=== PATIENT | male | born 1985 | race Two or more races ===

== ENCOUNTER 2019-08-23 21:24 | Emergency (ER) | payer MEDICAID ==
[~2019-08-23] VITALS: Ht 175.3 cm; Wt 108.9 kg
[~2019-08-23 21:24] MED LIST: LORA0.5T12 PO
[2019-08-23 22:25] VITALS: BP 135/86
[2019-08-23] MEDS ORDERED: TETRACAINE 1% INJ 2 ML VIAL IJ ONE (22:45)
[2019-08-23] MEDS ORDERED: FLUORESCEIN SOD 1 MG TEST STRIP EACHEYE ONE (22:45)
== END 2019-08-23 23:40 | disposition left against medical advice (07) ==
LOC: ER 21:27
DX: T15.02XA Foreign body in cornea, left eye, initial encounter (principal); X58.XXXA Exposure to other specified factors, initial encounter; Y93.89 Activity, other specified; Y92.89 Other specified places as the place of occurrence of the external cause; Y99.8 Other external cause status
CPT/HCPCS: 65222

== ENCOUNTER 2020-05-27 08:50 | Emergency (ER) | payer MEDICAID ==
[~2020-05-27] VITALS: Ht 190.5 cm; Wt 158.8 kg
[~2020-05-27 08:50] MED LIST changes: -LORA0.5T12 PO; +LORA0.5T20 PO
[2020-05-27 09:14] VITALS: BP 117/72
[2020-05-27] MEDS ORDERED: KETOROLAC TROMETH 60MG/2ML VIAL IM ONE (10:15)
== END 2020-05-27 10:56 | disposition home or self-care (01) ==
LOC: ER 08:50
DX: M54.16 Radiculopathy, lumbar region (principal); F12.10 Cannabis abuse, uncomplicated; Z88.8 Allergy status to other drugs, medicaments and biological substances
CPT/HCPCS: 96372; 99283; J1885